=== PATIENT | male | born 1955 | race Caucasian/White ===

== ENCOUNTER 2018-12-06 01:57 | Inpatient (IN) | payer OTHER ==
[2018-12-03 13:36] VITALS: BP 120/62
[2018-12-03 15:33] LABS: INTERNATIONAL NORM RATIO 3.2 (2.0-3.5)
[~2018-12-06] VITALS: Ht 182.8 cm; Wt 64.5 kg
[2018-12-06] VITALS (9 sets, daily range): BP systolic 96–117; BP diastolic 48–66
--- NOTE | ~2018-12-06 | O ---
[place], [place] OPERATIVE NOTE NAME: DANIELLE HUNT UNIT #: [id number] ROOM: [facility] DOCTOR: ZENAIDA LAZARO [facility] BIRTH[facility]: [birth year] DOS: 12/06/2018 The patient has recurrent congestive heart failure intrinsic intraventricular conduction delay greater than 130 and left ventricular dyssynchrony and discordant motion of the left ventricle. Severe left ventricular dysfunction, 35 or less and the patient is progressively symptomatic with a local MAC with DF deep sedation and previous generator was explanted. An incision made at the same place and the leads measurements are good, both right ventricular lead, DF lead, and also the right atrial lead. The patient has atrial flutter and the patient was given 25 mg of Cardizem bolus and 5 mg drip and micro access obtained of the left subclavian through the pocket and a micro sheath was placed, 0.035 guidewire was placed and predilated with a 7-Serbian dilator and also 7-Serbian sheath and then 9-Serbian sheath was placed and with a guidewire we are able to get into the coronary sinus and sinus sheath was advanced into the coronary sinus. Angiogram was performed and access was also good. Lateral cardiac vein also identified and a bipolar Medtronic lead was placed with a Whisper wire into the lateral cardiac vein through the coronary sinus and the measurements were done with the pulling back the Whisper wire and excellent measurements and also no chest wall or diaphragmatic depolarization. Inner and outer sheath was shaved out without disturbing the lead. Lead was anchored well to the chest wall in the pocket and the antibiotic Ray-Yovani wire was placed. After taking the device, a Ray-Yovani was taken out and irrigated with antibiotic solution and the generator was placed and anchored well to the chest wall with 0 Ethibond and the subcutaneous sutured with 0 chromic, skin was closed with 4-0 Vicryl at the T shock. Subsequently, burst pacing and be able to induce the ventricular fibrillation and defibrillated optimally and convert to sinus rhythm with shock valve sinus rhythm and increase the rate to 85. Normal atrial and ventricular pacing quite well and biventricular pacing is excellent. Outcome is good, not occur as complex. Leads are in good position, no pneumothorax. Now chest x-ray being obtained. The patient tolerated the procedure well. Outcome is good. No complications. The left ventricle lead is 80 stable. Right ventricular and right atrial leads also intact and right atrial and right ventricular leads were placed on 06/06/2013. Now on 12/06/2018 is the left ventricular lead. Left ventricular lead is 259497 model and serial is #[id number] and device is [id number], serial #[id number] and right atrial impedance is 484. P-wave amplitude is 2. Right ventricular bipolar, both of them are bipolar. Output at 0.5, impedance is 788. R-wave amplitude 13 volts. Left ventricular output is 0.5, R-wave amplitude is 27. Excellent measurements. The pocket was good. Hemostasis well obtained. The patient tolerated the procedure well. [place], [place] OPERATIVE NOTE NAME: DANIELLE HUNT UNIT #: [id number] ROOM: [facility] DOCTOR: ROVERTO ESTEVEZ MD, FACC BIRTHDATE: [birth year] ROVERTO ESTEVEZ MD CM:OPRECORD:OPERATIVE NOTE [id number] ROVERTO ESTEVEZ MD [facility] 12/31/18 0734 interface
--- NOTE | ~2018-12-06 | DS ---
[place], [place] DISCHARGE SUMMARY NAME: DANIELLE HUNT [facility] #: [id number] UNIT #: [id number] ROOM: [facility] DOCTOR: ZENAIDA [facility]O [facility] Agu[facility] BIRTHDATE: [birth year] DOS: 12/08/2018 HOSPITAL COURSE: The patient has severe left ventricle dysfunction with ejection fraction less than 30 and also recurrent congestive heart failure, prolonged QRS interval greater than 135 milliseconds and a cardiac dyssynchrony and causing the cardiac decompensation and the patient would benefit from cardiac resynchronization therapy. Options, procedure, complications, morbidity, mortality risk were explained. The ____ improved performance on congestive heart failure with clinical status of the patient. With local MAC with maximum protective barrier, full prep and drape was done with appropriate consent and a biventricular pacemaker with ICD was placed and the patient had a right atrial lead in the right atrial appendage and right ventricular defibrillator lead in the right ventricle and the coronary sinus angiogram was performed through the pocket in the left upper chest and using the deflectable catheter access from the coronary sinus and coronary sheath was placed over the guidewire and coronary sinus angiogram was performed to identify the lateral cardiac vein. Through the sheath and the coronary sinus, Medtronic coronary sinus lead was placed optimally and the lateral carotid vein with good measurements and able to slide the catheter out without disturbing the lead and the outer sheath also taken out without disturbing it and guidewire was taken out. Then, the catheter was anchored well to the chest wall in the pocket with good measurements. All the measurements and coronary sinus, left ventricular lead, right ventricular defibrillator lead and right atrial lead were good measurements and anchored well to the chest wall and connected to the biventricular pacemaker and the pocket was irrigated with the antibiotic solution and hemostasis well obtained and the leads were connected to the biventricular pacemaker placed in the pocket, anchored well to the chest wall. Subcutaneous sutured with chromic and skin was closed with 4-0 Vicryl and the pocket is in good position. All the leads are in good position with fluoroscopy. Chest x-ray was obtained subsequently and defibrillation threshold was measured, induced ventricular fibrillation, defibrillated optimally with good charging, good output and converted to the sinus rhythm and function is good. Outcome is good. No complications. The patient tolerated the procedure well and digital image was placed in the PACC system and chest x-ray also was done. EKG was done. The patient since congestive heart failure and the patient was dyspneic and tachypneic and the kept optimally for a couple of days until the patient was stabilized and ambulated, asymptomatic, pocket is good and then discharged to be followed as an outpatient and instructions are given and biventricular placement of the ICD function is also good at the time of discharge. We will follow him and evaluate the biventricular pacemaker with ICD as an outpatient. An antibiotic Keflex 500 mg 3 times a day for a week was given and continue the optimal medications for congestive heart failure and left ventricular dysfunction and ischemic cardiomyopathy. OUT COME: Good. [place], [place] DISCHARGE SUMMARY NAME: MARILEEDANIELLE UNIT #: [id number] ROOM: [facility] DOCTOR: ROVERTO ESTEVEZ MD, FACC BIRTHDATE: [birth year] ROVERTO ESTEVEZ MD CM:MICHAEL [id number] ROVERTO ESTEVEZ MD [facility] 01/03/19 1540 interface
--- NOTE | ~2018-12-06 | EKG ---
[place], [place] ELECTROCARDIOGRAM REPORT NAME: DANIELLE HUNT UNIT #: [id number] ROOM: [id number] DOCTOR: EPIPHANY DRAFT REPORT BIRTHDATE: [birth year] [facility] Test Date: 2018-12-06 Test Time: 10:07:58 Pat Name: DANIELLE HUNT Department: Room: [facility] Gender: M Cant Gang Sawyer: Yadira Whitley : 1955 Requested By: ROVERTO ESTEVEZ Order Number: [id number] [place] MD: Syeda Johnson Measurements Intervals [place] Rate: 84 P: 90 MN: 192 QRS: 250 QRSD: 168 T: 3 QT: 450 QTc: 533 Interpretive Statements Atrial-ventricular dual-paced rhythm Electronically Signed On 12-23-2018 7:50:23 PDT by Syeda Johnson CM:EKGRPT:ELECTROCARDIOGRAM REPORT [id number] ROVERTO ESTEVEZ MD [facility] EPIPHANY DRAFT REPORT ROVERTO ESTEVEZ MD [facility]
[~2018-12-06 01:57] MED LIST: ATENOLOL50 M1 PO; AUGMENTIN 875875 MG PO; BENZONATATE100 M1 PO; BUDEPRION XL150 MG PO; CARTIA XT240 MG PO; CLOPIDOGREL75 MG PO; HYDROXYZINE PAM25 M1 PO; LISINOPRIL2.5 MG PO; LOVASTATIN10 MG PO
[2018-12-06] MEDS ORDERED: COUMADIN6 M2 PO (06:54)
[2018-12-06 07:06] LABS: INTERNATIONAL NORM RATIO 1.5 (2.0-3.5)
[2018-12-07] VITALS: BP 93/52
--- NOTE | 2018-12-07 06:32 | NUR ---
SEE PAPER EMAR IN REGARD TO ADMINISTRATION OF 0600 MEDICATIONS.
--- NOTE | 2018-12-07 06:33 | NUR ---
IN WITH WOUND CARE NURSE TO ASSESS PATIENT WOUNDS AROUND 0530. RIGHT SECOND TOE IS RED AND BLANCHABLE.
--- NOTE | 2018-12-07 07:12 | NUR ---
DANIELLE HUNT [id number] Please refer to the physician's history and physical for past medical history, comorbid conditions, and allergies. Diagnosis: S/P PERMANENT PACEMAKER INSERTION Sudheer Score: 22,LOW OR NO RISK WOUND DESCRIPTIONS: Wound Number: 1 Location of the wound: right top of foot Type of Wound: Unstageable Thickness: Full Size: 0.7cm x 0.4cm <0.1cm Tunneling: none Undermining: none Sinus Tract: none Presence of Exudate: none Amount: None Color: Yellow, red Odor: None Periwound Skin Appearance: Erythema Wound edges: approximated Pain (associated with wound): none at time of assessment How does patient state this happened? Pt stated this area looks much better than it did. He stated he used to follow up with podiatry in [place] and he stated he was using the same medication bactroban from the areas on his left foot which are intact scabs at this time to the area on his right foot. He stated he had to switch shoes due to the rubbing that caused this area. Right second toe is red and blanchable at time of assessment. No open areas noted at time of assessment and no drainage noted. Surface the patient is resting on: Isoflex SKIN PREVENTION RECOMMENDATION: 1. Pressure redistribution support surface as appropriate 2. Elevate heels 3. Remove boots/TEDS every shift and reapply 4. Head of bed 30 degrees as tolerated 5. Assess nutrition and hydration 6. Manage moisture 7. Avoid the use of containment devices while in bed 8. Use absorptive products on surfaces limit layers of linens on bed 9. Turn and reposition every 1-2 hours in bed and every 1 hour in chair as tolerated 10. Weight shifts every 15 minutes while up in chair 11. Offloading with pillows or device to keep heels elevated off bed 12. Monitor skin at least every shift 13. Inspect under medical devices twice a day WOUND TREATMENT RECOMMENDATIONS: Consult podiatry due to non-healing area to right top of foot. Venous and arterial stuides to BLE's due to non-healing wound. Imaging studies to right foot due to non-healing wound. Full thickness guidelines: Cleanse right top of foot with nss and apply sureprep around the wound therahoney to wound bed and cover with optifoam gentle.
[2018-12-07 07:47] VITALS: BP 100/58
--- NOTE | 2018-12-07 10:05 | NUR ---
Spoke with Ghislaine from Dr. Price's office she stated that her textile conversion manager Jazmín stated to call [phone] and have him paged through there.
--- NOTE | 2018-12-07 10:10 | NUR ---
Spoke with Ashvin from the photographic laboratory technician and he stated he will give the number and have him call us back after the procedure he also stated that Dr. Price typically handles the medical management of his patients.
--- NOTE | 2018-12-07 10:11 | NUR ---
Wound care recommendations give to Eve ROSARIO for call back when Dr. Price calls.
--- NOTE | 2018-12-07 10:20 | NUR ---
Message left with 's staff to contact me regarding wound care recommendations and to inform him of patients low blood pressures. Blood pressure medications are being held until I speak with physician. Patient is aware.
[2018-12-07 12:00] VITALS: BP 109/69
[2018-12-07 16:00] VITALS: BP 108/66
[2018-12-07 17:52] LABS: INTERNATIONAL NORM RATIO 1.1 (2.0-3.5)
--- NOTE | 2018-12-07 18:30 | NUR ---
Dr. Price has not returned phone calls.
[2018-12-07 20:00] VITALS: BP 120/53
--- NOTE | 2018-12-07 20:34 | NUR ---
PATIENT IS RESTING IN BED WITH EASY AND REGULAR RESPERS ON ROOM AIR. ASSESSMENT IS COMPLETE WITH NO C/O OR S/S OF DISTRESS NOTED AT THIS TIME. BED IS LOW, LOCKED AND CALL LIGHT IS WITHIN REACH. SEE SHIFT ASSESSMENT.
[2018-12-08] VITALS: BP 137/62
[2018-12-08 08:00] VITALS: BP 102/58
[2018-12-08 08:15] VITALS: BP 102/58
--- NOTE | 2018-12-08 09:44 | NUR ---
Message was sent to Dr. Price's pager through his answering service. Physician is to contact me regarding med administration for low blood pressures, wound care orders, history and physical and patient questioning if he is being discharged today.
--- NOTE | 2018-12-08 09:49 | NUR ---
Spoke with Aspen from Dr. Price's office regarding issues in previous note. She is to speak with doctor and call me back.
--- NOTE | 2018-12-08 10:10 | NUR ---
Demoral given per patient request for pain in his back, shoulders and neck. Will monitor.
--- NOTE | 2018-12-08 10:40 | NUR ---
Left a message on [facility] for Dr. Scruggs regarding that fact that Dr. Price has not returned my call.
--- NOTE | 2018-12-08 10:51 | NUR ---
Aspen from Dr. Price's office returned call. Per physician it is ok to give cardiac medications. He will address H&P, wound care orders, op site orders and discharge orders when he comes to see the patient later this afernoon. Attempted to contact Dr. Scruggs on number but there was no answer and the mailbox was full.
[2018-12-08 16:00] VITALS: BP 109/70
--- NOTE | 2018-12-08 17:40 | NUR ---
Discharge instructions reviewed with patient/family. Patient receptive and verbalizes understanding. Follow-up care arranged. Written instructions given to patient/family. Patient was wheeled from unit by staff member and with all personal belongings accounted for. Patient knows to follow up with Dr. Price on November. MILLY MENDOZA
--- NOTE | 2018-12-08 17:46 | NUR ---
Notified Dr. Price that patient was discharged.
== END 2018-12-08 17:40 | disposition home or self-care (01) | DRG 243 ==
LOC: SDC 01:57 → 5E 09:50 → SDC 13:15 → 5E 12-07 10:18
PROVIDERS: ADMIT Internal Medicine Cardiovascular Disease
PROC: 02HL3JZ Insertion of Pacemaker Lead into Left Ventricle, Percutaneous Approach (ICD-10-PCS; principal; 2018-12-06)
PROC: 0JH606Z Insertion of Pacemaker, Dual Chamber into Chest Subcutaneous Tissue and Fascia, Open Approach (ICD-10-PCS; 2018-12-06)
PROC: 0JPT0PZ Removal of Cardiac Rhythm Related Device from Trunk Subcutaneous Tissue and Fascia, Open Approach (ICD-10-PCS; 2018-12-06)
PROC: 3E0102A Introduction of Anti-Infective Envelope into Subcutaneous Tissue, Open Approach (ICD-10-PCS; 2018-12-06)
PROC: 4B02XSZ Measurement of Cardiac Pacemaker, External Approach (ICD-10-PCS; 2018-12-06)
PROC: B51N1ZA Fluoroscopy of Left Upper Extremity Veins using Low Osmolar Contrast, Guidance (ICD-10-PCS; 2018-12-06)
DX: I50.1 Left ventricular failure, unspecified (principal); I48.92 Unspecified atrial flutter; I45.9 Conduction disorder, unspecified; I25.5 Ischemic cardiomyopathy; Z89.411 Acquired absence of right great toe; Z88.5 Allergy status to narcotic agent; Z95.5 Presence of coronary angioplasty implant and graft